=== PATIENT | male | born 1965 | race Caucasian/White ===

== ENCOUNTER 2017-05-28 08:41 | Emergency (ER) | payer BC ==
[~2017-05-28] VITALS: Ht 170.2 cm; Wt 87.2 kg
[2017-05-28 10:46] VITALS: BP 114/77
== END 2017-05-28 10:46 | disposition home or self-care (01) ==
LOC: ED 08:41
DX: N50.82 Scrotal pain (principal); R11.2 Nausea with vomiting, unspecified
CPT/HCPCS: Q0092; Q0162